=== PATIENT | female | born 1950 | race Two or more races ===

== ENCOUNTER 2018-06-21 13:18 | Outpatient (CLI) | payer OTHER | END 2018-06-21 13:26 | disposition home or self-care (01) | LOC: RAD 13:18 | DX: M17.0 Bilateral primary osteoarthritis of knee (principal) ==

== ENCOUNTER 2019-03-10 15:35 | Emergency (ER) | payer OTHER ==
[~2019-03-10] VITALS: Ht 160 cm; Wt 58.1 kg
[2019-03-10] MEDS ORDERED: SYNTHROID50 MCG (15:46)
[2019-03-10] MEDS ORDERED: PAROXETINE CR12.5 MG (15:47)
== END 2019-03-10 17:53 | disposition home or self-care (01) ==
LOC: ER 15:35
DX: S70.02XA Contusion of left hip, initial encounter (principal); M25.552 Pain in left hip; W01.198A Fall on same level from slipping, tripping and stumbling with subsequent striking against other object, initial encounter; Y93.89 Activity, other specified; Y92.013 Bedroom of single-family (private) house as the place of occurrence of the external cause; Y99.8 Other external cause status

== ENCOUNTER 2019-03-13 13:50 | Emergency (ER) | payer OTHER ==
[~2019-03-13] VITALS: Ht 160 cm; Wt 58.1 kg
[~2019-03-13 13:50] MED LIST: PAROXETINE CR12.5 MG; SYNTHROID50 MCG
[2019-03-13] MEDS ORDERED: FLECTOR1 EACH TOP (15:23)
[2019-03-13] MEDS ORDERED: VALIUM PO (15:23)
== END 2019-03-13 17:41 | disposition home or self-care (01) ==
LOC: ER 13:50
DX: S30.0XXD Contusion of lower back and pelvis, subsequent encounter (principal); M54.5 Low back pain; M25.552 Pain in left hip; W18.09XA Striking against other object with subsequent fall, initial encounter; Y93.89 Activity, other specified; Y92.098 Other place in other non-institutional residence as the place of occurrence of the external cause; Y99.8 Other external cause status

== ENCOUNTER 2019-03-29 09:02 | Outpatient (CLI) | payer OTHER ==
[~2019-03-29 09:02] MED LIST changes: +FLECTOR1 EACH TOP; +VALIUM PO
[2019-04-08] MEDS ORDERED: LIDOCAINE1 EACH TOP (11:40)
[2019-04-08] MEDS ORDERED: NORFLEX100MG PO (11:40)
[2019-04-08] MEDS ORDERED: NABUMETONE750 MG PO (11:40)
== END 2019-03-29 09:04 | disposition home or self-care (01) ==
LOC: MRI 09:02
DX: M54.5 Low back pain (principal)
CPT/HCPCS: 72148

== ENCOUNTER → 2019-04-11 | Outpatient (CLI) | payer OTHER ==
[~2019-04-11] MED LIST changes: +CLONAZEPAM0.25 MG; +LIDOCAINE1 EACH TOP; +NABUMETONE750 MG PO; +NORFLEX100MG PO
== END | disposition home or self-care (01) ==
LOC: RAD 14:39
DX: M53.3 Sacrococcygeal disorders, not elsewhere classified (principal); M54.5 Low back pain

== ENCOUNTER 2019-05-03 12:09 | Emergency (ER) | payer OTHER ==
[~2019-05-03] VITALS: Ht 160 cm; Wt 56.7 kg
[~2019-05-03 12:09] MED LIST changes: -CLONAZEPAM0.25 MG
[2019-05-03] MEDS ORDERED: CLONAZEPAM0.25 MG (12:34)
== END 2019-05-03 14:31 | disposition home or self-care (01) ==
LOC: ER 12:09
DX: S00.83XA Contusion of other part of head, initial encounter (principal); W22.8XXA Striking against or struck by other objects, initial encounter; Y93.89 Activity, other specified; Y92.238 Other place in hospital as the place of occurrence of the external cause; Y99.8 Other external cause status

== ENCOUNTER → 2019-07-26 | Outpatient (CLI) | payer OTHER ==
[~2019-07-26] MED LIST changes: +CLONAZEPAM0.25 MG
== END | disposition home or self-care (01) ==
LOC: MRI 14:15
DX: M25.551 Pain in right hip (principal)
CPT/HCPCS: 73718; 73721

== ENCOUNTER 2021-09-29 11:27 | Outpatient (CLI) | payer OTHER ==
[~2021-09-29 11:27] MED LIST changes: +DICLOFENAC POTA50 MG PO; +NEURONTIN300 MG PO; +ROBAXIN-750750 MG PO
== END 2021-09-29 11:46 | disposition home or self-care (01) ==
LOC: MRI 11:27
DX: M25.551 Pain in right hip (principal)
CPT/HCPCS: 73718

== ENCOUNTER → 2022-04-29 13:00 | Outpatient (CLI) | payer OTHER ==
[~2022-04-29 13:00] MED LIST changes: +METHOCARBAMOL500 MG PO
== END | disposition home or self-care (01) ==
LOC: RAD 13:00
PROVIDERS: ATTEND Specialist
DX: M51.36 Other intervertebral disc degeneration, lumbar region (principal); Z96.641 Presence of right artificial hip joint; M16.0 Bilateral primary osteoarthritis of hip

== ENCOUNTER 2022-06-19 06:35 | Emergency (ER) | payer OTHER ==
[~2022-06-19] VITALS: Ht 160 cm; Wt 58.1 kg
== END 2022-06-19 12:08 | disposition home or self-care (01) ==
LOC: ER 06:35
DX: S42.291A Other displaced fracture of upper end of right humerus, initial encounter for closed fracture (principal); S52.021A Displaced fracture of olecranon process without intraarticular extension of right ulna, initial encounter for closed fracture; S70.01XA Contusion of right hip, initial encounter; W18.30XA Fall on same level, unspecified, initial encounter; Y93.9 Activity, unspecified; Y92.9 Unspecified place or not applicable; Y99.9 Unspecified external cause status; Z88.0 Allergy status to penicillin

== ENCOUNTER 2022-06-21 07:33 | Inpatient (IN) | payer OTHER ==
[~2022-06-21] VITALS: Ht 160 cm; Wt 58.1 kg
--- NOTE | 2022-06-21 07:44 | NUR ---
SE RECIBE PTE ALERTA ORIENTADA X 3. PTE REFIERE RICKIE TENIDO BRAEDEN CAIDA SABADO CAUSANDOLE FRACTURA EN EL CODO Y EL HOMBRO,PTE DE TRACEY LE REFIRE VENIR A LA TREMAYNE DE EMERGENCIA. SE JANNETH S/V Y SE UBICA.
--- NOTE | 2022-06-21 09:41 | NUR ---
SE RECIBE PTE FEMENINA DE 72 YRS ALERTA CONCIENTE Y TRANQUILA EN COMPANIA DE FAMILAIR. PTE ES EVALUADA POR EL , D'BONILLA QUIEN ORDENA TRATAMIENTO LA CUAL SE EJECUTA. SE MANTIENE BAJO OBSERVACION POR CAMBIOS.
[2022-06-21] MEDS ORDERED: PAROXETINE HCL20 MG (15:06)
[2022-06-21] MEDS ORDERED: FOLINIC-PLUS C1 EACH (15:06)
[2022-06-21] MEDS ORDERED: ALENDRONATE SOD70 MG (15:07)
[2022-06-21] MEDS ORDERED: MELOXICAM15 MG (15:07)
[2022-06-21] MEDS ORDERED: CELECOXIB200 MG (15:07)
[2022-06-21] MEDS ORDERED: AZELASTINE137 MCG/0. (15:07)
[2022-06-22] MEDS ORDERED: PERCOCET 5-3251 EACH PO (08:43)
== END 2022-06-22 12:10 | disposition home or self-care (01) | DRG 493 ==
LOC: ER 07:33 → SURH 13:47
PROVIDERS: Orthopaedic Surgery; ADMIT Internal Medicine; ATTEND Internal Medicine
PROC: 0PSK04Z Reposition Right Ulna with Internal Fixation Device, Open Approach (ICD-10-PCS; 2022-06-21)
PROC: 0PSC04Z Reposition Right Humeral Head with Internal Fixation Device, Open Approach (ICD-10-PCS; principal; 2022-06-21 14:15)
DX: S42.291A Other displaced fracture of upper end of right humerus, initial encounter for closed fracture (principal); M80.021A Age-related osteoporosis with current pathological fracture, right humerus, initial encounter for fracture; S52.031A Displaced fracture of olecranon process with intraarticular extension of right ulna, initial encounter for closed fracture; S50.01XA Contusion of right elbow, initial encounter; M25.551 Pain in right hip

== ENCOUNTER 2022-06-29 15:12 | Emergency (ER) | payer OTHER ==
[~2022-06-29] VITALS: Ht 160 cm; Wt 58.1 kg
[~2022-06-29 15:12] MED LIST changes: +ALENDRONATE SOD70 MG; +AZELASTINE137 MCG/0.; +CELECOXIB200 MG; +FOLINIC-PLUS C1 EACH; +MELOXICAM15 MG; +PAROXETINE HCL20 MG; +PERCOCET 5-3251 EACH PO
[2022-06-29] MEDS ORDERED: ONDANSETRON ODT8 MG PO (20:00)
== END 2022-06-29 20:06 | disposition home or self-care (01) ==
LOC: ER 15:12
DX: E86.0 Dehydration (principal); R11.10 Vomiting, unspecified; E78.6 Lipoprotein deficiency; Z20.822 Contact with and (suspected) exposure to COVID-19

== ENCOUNTER 2022-09-28 14:05 | Outpatient (CLI) | payer OTHER ==
[~2022-09-28 14:05] MED LIST changes: +ONDANSETRON ODT8 MG PO
== END 2022-09-28 14:06 | disposition home or self-care (01) ==
LOC: RAD 14:05
PROVIDERS: ATTEND Physical Medicine & Rehabilitation
DX: M17.11 Unilateral primary osteoarthritis, right knee (principal); M25.551 Pain in right hip

== ENCOUNTER 2022-11-22 12:12 | Outpatient (CLI) | payer OTHER | END 2022-11-22 12:24 | disposition home or self-care (01) | LOC: RAD 12:12 | PROVIDERS: ATTEND Specialist | DX: M50.90 Cervical disc disorder, unspecified, unspecified cervical region (principal); M60.89 Other myositis, multiple sites; M41.30 Thoracogenic scoliosis, site unspecified ==

== ENCOUNTER 2022-11-30 08:15 | Outpatient (CLI) | payer OTHER | END 2022-11-30 08:20 | disposition home or self-care (01) | LOC: MRI 08:15 | PROVIDERS: ATTEND Physical Medicine & Rehabilitation | DX: S32.501A Unspecified fracture of right pubis, initial encounter for closed fracture (principal) | CPT/HCPCS: 72195 ==

== ENCOUNTER 2022-12-23 13:53 | Outpatient (CLI) | payer OTHER | END 2022-12-23 13:57 | disposition home or self-care (01) | LOC: RAD 13:53 | PROVIDERS: ATTEND Orthopaedic Surgery | DX: Z03.818 Encounter for observation for suspected exposure to other biological agents ruled out (principal); Z20.828 Contact with and (suspected) exposure to other viral communicable diseases; Z20.822 Contact with and (suspected) exposure to COVID-19; M35.81 Multisystem inflammatory syndrome ==

== ENCOUNTER 2023-01-16 18:13 | Emergency (ER) | payer OTHER ==
[~2023-01-16] VITALS: Ht 160 cm; Wt 59.0 kg
[2023-01-16] MEDS ORDERED: PAROXETINE7.5 MG PO (18:27)
[2023-01-16] MEDS ORDERED: ONDANSETRON ODT8 MG PO (20:39)
[2023-01-16] MEDS ORDERED: PEPCID AC20 MG PO (20:39)
== END 2023-01-16 21:02 | disposition home or self-care (01) ==
LOC: ER 18:13
DX: K29.70 Gastritis, unspecified, without bleeding (principal); R11.2 Nausea with vomiting, unspecified; Z88.0 Allergy status to penicillin

== ENCOUNTER → 2023-01-31 | Outpatient (CLI) | payer OTHER ==
[~2023-01-31] MED LIST changes: +PAROXETINE7.5 MG PO; +PEPCID AC20 MG PO
== END | disposition home or self-care (01) ==
LOC: SONOGRAMA 13:06
PROVIDERS: ATTEND Specialist
DX: M17.11 Unilateral primary osteoarthritis, right knee (principal); S83.202A Bucket-handle tear of unspecified meniscus, current injury, unspecified knee, initial encounter

== ENCOUNTER 2023-04-23 06:40 | Inpatient (IN) | payer OTHER ==
[~2023-04-23] VITALS: Ht 160 cm; Wt 58.5 kg
[2023-04-24] MEDS ORDERED: FOLINIC-PLUS C1 EACH (13:27)
[2023-04-24] MEDS ORDERED: PAROXETINE HCL30 MG (13:27)
[2023-04-24] MEDS ORDERED: IBANDRONATE SO150 MG (13:28)
[2023-04-24] MEDS ORDERED: DULOXETINE HCL20 MG (13:28)
[2023-04-26] MEDS ORDERED: LEVOTHYROXINE75 MCG PO (13:00)
== END 2023-04-26 13:26 | disposition home or self-care (01) | DRG 641 ==
LOC: ER 06:40 → ICU-2 15:21 → ICU 15:21 → MEDJ 04-25 14:52
PROVIDERS: ADMIT Internal Medicine; ATTEND Internal Medicine
PROC: B020ZZZ Computerized Tomography (CT Scan) of Brain (ICD-10-PCS; principal; 2023-04-23)
PROC: 4A12X4Z Monitoring of Cardiac Electrical Activity, External Approach (ICD-10-PCS; 2023-04-23)
DX: E87.1 Hypo-osmolality and hyponatremia (principal); E86.0 Dehydration; F44.89 Other dissociative and conversion disorders; E03.9 Hypothyroidism, unspecified; K52.9 Noninfective gastroenteritis and colitis, unspecified; Z78.1 Physical restraint status

== ENCOUNTER 2023-06-19 10:18 | Outpatient (CLI) | payer OTHER ==
[~2023-06-19 10:18] MED LIST changes: +DULOXETINE HCL20 MG; +IBANDRONATE SO150 MG; +LEVOTHYROXINE75 MCG PO; +PAROXETINE HCL30 MG
== END 2023-06-19 10:27 | disposition home or self-care (01) ==
LOC: MRI 10:18
PROVIDERS: ATTEND Neuromusculoskeletal Medicine & OMM
DX: I72.9 Aneurysm of unspecified site (principal); I65.1 Occlusion and stenosis of basilar artery; I65.09 Occlusion and stenosis of unspecified vertebral artery; I65.29 Occlusion and stenosis of unspecified carotid artery; Q28.2 Arteriovenous malformation of cerebral vessels; M51.26 Other intervertebral disc displacement, lumbar region; M51.36 Other intervertebral disc degeneration, lumbar region; G93.41 Metabolic encephalopathy; E87.1 Hypo-osmolality and hyponatremia; R41.82 Altered mental status, unspecified
CPT/HCPCS: 70546; 70553; 72148; Q9965; 70544

== ENCOUNTER 2023-09-19 08:09 | Outpatient (CLI) | payer OTHER | END 2023-09-19 08:11 | disposition home or self-care (01) | LOC: NUCLEAR 08:09 | PROVIDERS: ATTEND Internal Medicine | DX: R53.1 Weakness (principal) ==

== ENCOUNTER 2023-10-08 16:05 | Emergency (ER) | payer OTHER ==
[~2023-10-08] VITALS: Ht 160 cm; Wt 56.7 kg
[2023-10-08 17:11] LABS: HEMATOCRIT 37.5 % (36.0-45.00); HEMOGLOBIN 13.1 g/dL (12.0-15.00); MEAN CELL VOLUME 96.2 fL (80.00-100.00); MEAN CORPUSCULAR HEMOGLOBIN 33.6 pg (27.00-32.0); MEAN CORPUSCULAR HGB CONC 34.9 g/dl (32.0-36.0); PLATELET COUNT 283 K/uL (150-450); RED CELL DISTRIBUTION WIDTH 14.3 % (11.5-14.5)
[2023-10-08 17:31] LABS: INR 1.02; PARTIAL THROMBOPLASTIN TIME 31.6 SECONDS (22.0-34.0); PROTHROMBIN TIME 10.7 SECONDS (9.0-11.5)
[2023-10-08 17:40] LABS: PH,URINE 7.5 (5.0-8.0); URINE APPEARANCE Clear; URINE BILIRRUBIN Negative (NEGATIVE); URINE COLOR Yellow; URINE GLUCOSE Negative (NEGATIVE); URINE LEUKOCYTE Trace; URINE NITRATE Negative; URINE PROTEIN Negative (NEGATIVE); URINE UROBILINOGEN 0.2 E.U./dl
[2023-10-08 17:44] LABS: URINE BACTERIA 31.4 uL (0.0-1933); URINE EPITHELIAL CELLS 16.9 uL (0.0-38.8); URINE RBC 25.8 uL (0.0-20.8); URINE WBC 18.2 uL (0.0-23.2)
[2023-10-08 17:46] LABS: URINE BLOOD Trace
[2023-10-08 17:48] LABS: ALBUMIN 3.8 gm/dL (3.4-5.0); BILIRUBIN TOTAL 0.61 mg/dL (0.3-1.2); CALCIUM 9.3 mg/dL (8.5-10.1); CREATININE SERUM 0.5 mg/dL (0.55-1.02); GFR 120.61; GLOBULINA 3.3 G/DL (2.4-3.5); POTASSIUM 4.05 mEq/L (3.5-5.1); TOTAL PROTEIN 7.1 gm/dL (6.4-8.2)
== END 2023-10-08 19:30 | disposition home or self-care (01) ==
LOC: ER 16:06
PROVIDERS: General Practice
DX: A09 Infectious gastroenteritis and colitis, unspecified (principal); Z88.0 Allergy status to penicillin
CPT/HCPCS: 36415; 96365; 99283; J3490

== ENCOUNTER 2023-11-21 15:32 | Outpatient (CLI) | payer OTHER | END 2023-11-21 15:46 | disposition home or self-care (01) | LOC: LAB 15:32 → EKG 15:32 → LAB 15:46 | DX: I10 Essential (primary) hypertension (principal); I11.9 Hypertensive heart disease without heart failure; Z98.41 Cataract extraction status, right eye; H25.011 Cortical age-related cataract, right eye ==

== ENCOUNTER 2024-01-23 07:32 | Outpatient (CLI) | payer OTHER ==
[2024-01-23 09:49] LABS: ALBUMIN 3.6 gm/dL (3.4-5.0); BILIRUBIN TOTAL 0.61 mg/dL (0.3-1.2); CALCIUM 9.2 mg/dL (8.5-10.1); CREATININE SERUM 0.72 mg/dL (0.55-1.02); GFR 79.18; GLOBULINA 3.5 G/DL (2.4-3.5); POTASSIUM 4.05 mEq/L (3.5-5.1); TOTAL PROTEIN 7.1 gm/dL (6.4-8.2)
== END 2024-01-23 07:41 | disposition home or self-care (01) ==
LOC: LAB 07:32
PROVIDERS: ATTEND Physical Medicine & Rehabilitation
DX: I10 Essential (primary) hypertension (principal); E55.9 Vitamin D deficiency, unspecified

== ENCOUNTER 2024-05-13 09:17 | Outpatient (CLI) | payer OTHER | END 2024-05-13 09:25 | disposition home or self-care (01) | LOC: SONOGRAMA 09:17 | PROVIDERS: ATTEND Internal Medicine | DX: E04.2 Nontoxic multinodular goiter (principal) ==

== ENCOUNTER 2024-08-26 14:13 | Outpatient (CLI) | payer OTHER | END 2024-08-26 14:15 | disposition home or self-care (01) | LOC: MAMO-SONO 14:13 | PROVIDERS: ATTEND Obstetrics & Gynecology | DX: N60.11 Diffuse cystic mastopathy of right breast (principal); N60.12 Diffuse cystic mastopathy of left breast ==

== ENCOUNTER 2025-02-11 09:23 | Outpatient (CLI) | payer OTHER ==
[~2025-02-11 09:23] MED LIST changes: +MIRTAZAPINE30 MG PO
== END 2025-02-11 09:29 | disposition home or self-care (01) ==
LOC: RAD 09:23
PROVIDERS: ATTEND Orthopaedic Surgery
DX: D68.9 Coagulation defect, unspecified (principal); Z03.818 Encounter for observation for suspected exposure to other biological agents ruled out; Z20.828 Contact with and (suspected) exposure to other viral communicable diseases

== ENCOUNTER 2025-03-11 07:07 | Outpatient (CLI) | payer OTHER | END 2025-03-11 07:09 | disposition home or self-care (01) | LOC: NUCLEAR 07:07 | PROVIDERS: ATTEND Internal Medicine | DX: R06.01 Orthopnea (principal) | CPT/HCPCS: 78452; 93017; A9500 ==